=== PATIENT | male | born 1985 | race African-American/Black ===

== ENCOUNTER 2018-08-18 08:12 | Emergency (ER) | payer MEDICAID ==
[~2018-08-18] VITALS: Ht 185.4 cm; Wt 98.0 kg
[~2018-08-18 08:12] MED LIST: DEXT1POW2; GABA-529 PO; MOTRIN; NAPR375T PO; NAPROXEN; TRAMADOL; VIC GT; VICODIN
[2018-08-18] MEDS ORDERED: HYDROCODONE/ACETAMINOPHEN 5/325MG TABLET PO ONE (08:45)
[2018-08-18 09:48] VITALS: BP 123/88
== END 2018-08-18 09:52 | disposition home or self-care (01) ==
LOC: ER 08:12
DX: M25.552 Pain in left hip (principal); M54.5 Low back pain; V49.49XA Driver injured in collision with other motor vehicles in traffic accident, initial encounter; Y93.89 Activity, other specified; Y92.89 Other specified places as the place of occurrence of the external cause; Y99.8 Other external cause status; Z79.899 Other long term (current) drug therapy
CPT/HCPCS: 73522; 99283